=== PATIENT | female | born 1970 | race Caucasian/White ===

== ENCOUNTER 2018-09-05 22:31 | Emergency (ER) | payer OTHER ==
--- NOTE | 2018-09-05 23:32 | ED Physician Chart ---
ED Chief Complaint/HPI - Patient Information Date Seen:: 09/05/18 Time Seen:: 23:32 Chief Complaint:: Dizziness History of Present Illness:: 48 yo female had headache, dizziness, right jaw tightness, abdominal pain, nausea for 30 minutes. Pt had this before when she felt anxious. Allergies:: Allergies Allergy/AdvReac Type Severity Reaction Status Date / Time No Known Allergies Allergy Verified 09/05/18 22:51 Vitals:: Vital Signs - 8 hr 09/05/18 22:40 Temp 98.1 F HR 63 RR 18 BP 129/72 O2 Sat % 99 ED Review of Systems - Review of Systems General/Constitutional: No fever, Chills, Weakness Skin: No rash Head: Headache Eyes: No pain ENT: No earache Neck: Neck pain Cardio Vascular: No chest pain Pulmonary: SOB GI: Nausea, No vomiting Musculoskeletal: No bone or joint pain Neurological: No focal symptoms ED Past Medical History - Past Medical History Past Medical History: No significant medical hx Social History: Non Smoker, No Alcohol, No Drug Use Surgical History: None Family Medical History - Family Member Mother History Unknown: Yes ED Physical Exam - Physical Examination General/Constitutional: Awake, Alert Head: Atraumatic Eyes: PERRL, EOMI Skin: No skin lesions ENMT: Nasal exam nl Neck: No nuchal rigidity Respiratory: Nl effort/Exclusion, Clear to Auscultation Cardio Vascular: RRR, No murmur, gallop, rubs, NL S1 S2 GI: No tenderness/rebounding/guarding Extremities: normal strength in all extremities Neuro/Psych: No focal deficits ED Labs/Radiology/EKG Results - Lab Results Results: Laboratory Last Values WBC 8.9 Th/cmm (4.8-10.8) 09/05/18 23:55 RBC 4.53 Mil/cmm (3.80-5.10) 09/05/18 23:55 Hgb 13.0 gm/dL (12-16) 09/05/18 23:55 Hct 38.5 % (41.0-60) L 09/05/18 23:55 MCV 85.0 fl (81-100) 09/05/18 23:55 MCH 28.6 pg (27.0-31.0) 09/05/18 23:55 MCHC Differential 33.7 pg (28.0-36.0) 09/05/18 23:55 RDW 12.0 % (11.5-20.0) 09/05/18 23:55 Plt Count 292 Th/cmm (150-400) 09/05/18 23:55 MPV 8.5 fl 09/05/18 23:55 Neutrophils % 57.8 % (40.0-80.0) 09/05/18 23:55 Lymphocytes % 38.5 % (20.0-50.0) 09/05/18 23:55 Monocytes % 1.0 % (2.0-10.0) L 09/05/18 23:55 Eosinophils % 1.2 % (0.0-5.0) 09/05/18 23:55 Basophils % 1.5 % (0.0-2.0) 09/05/18 23:55 Sodium 139 mEq/L (136-145) 09/05/18 23:55 Potassium 3.3 mEq/L (3.5-5.1) L 09/05/18 23:55 Chloride 103 mEq/L (98-107) 09/05/18 23:55 Carbon Dioxide 27.5 mEq/L (21.0-31.0) 09/05/18 23:55 Anion Gap 11.8 (7.0-16.0) 09/05/18 23:55 BUN 8 mg/dL (7-25) 09/05/18 23:55 Creatinine 0.8 mg/dL (0.6-1.2) 09/05/18 23:55 Est GFR ( Amer) > 60.0 ml/min (>90) 09/05/18 23:55 Est GFR (Non-Af Amer) > 60.0 ml/min 09/05/18 23:55 BUN/Creatinine Ratio 10.0 09/05/18 23:55 Glucose 141 mg/dL (70-105) H 09/05/18 23:55 Calcium 9.4 mg/dL (8.6-10.3) 09/05/18 23:55 Total Bilirubin 0.4 mg/dL (0.3-1.0) 09/05/18 23:55 AST 16 U/L (13-39) 09/05/18 23:55 ALT 22 U/L (7-52) 09/05/18 23:55 Alkaline Phosphatase 86 U/L (34-104) 09/05/18 23:55 Troponin I < 0.01 ng/mL (0.01-0.05) L 09/05/18 23:55 B-Natriuretic Peptide < 5.0 pg/mL (5.0-100.0) L 09/05/18 23:55 Total Protein 6.7 gm/dL (6.0-8.3) 09/05/18 23:55 Albumin 4.2 gm/dL (3.7-5.3) 09/05/18 23:55 Globulin 2.5 gm/dL 09/05/18 23:55 Albumin/Globulin Ratio 1.7 (1.0-1.8) 09/05/18 23:55 Lipase 34 U/L (11-82) 09/05/18 23:55 Urine Source MIDSTREAM 09/06/18 00:40 Urine Color YELLOW 09/06/18 00:40 Urine Clarity CLEAR (CLEAR) 09/06/18 00:40 Urine pH 7.0 (4.6 - 8.0) 09/06/18 00:40 Ur Specific [place] <= 1.005 (1.005-1.030) 09/06/18 00:40 Urine Protein NEGATIVE mg/dL (NEGATIVE) 09/06/18 00:40 Urine Glucose (UA) NEGATIVE mg/dL (NEGATIVE) 09/06/18 00:40 Urine Ketones NEGATIVE mg/dL (NEGATIVE) 09/06/18 00:40 Urine Blood NEGATIVE (NEGATIVE) 09/06/18 00:40 Urine Nitrate NEGATIVE (NEGATIVE) 09/06/18 00:40 Urine Bilirubin NEGATIVE (NEGATIVE) 09/06/18 00:40 Urine Urobilinogen 0.2 E.U./dL (0.2 - 1.0) 09/06/18 00:40 Ur Leukocyte Esterase NEGATIVE (NEGATIVE) 09/06/18 00:40 Urine Test NEGATIVE 09/06/18 00:40 - EKG Interpretations Comments:: Normal EKG, sinus rhythm without ST, T waves changes. ED Assessment - Assessment General Assessment: Anxiety Hypokalemia Assessment/Comments:: CBC, CMP, troponin, CPK, BNP EKG, CXR KCL 40 mEq PO Reassurance ED Septic Shock - . Is Septic Shock (SBP<90, OR Lactate>4 mmol\L) present?: No - <6hrs of presentation: Vital Signs: Vital Signs - 8 hr 09/05/18 22:40 Temp 98.1 F HR 63 RR 18 BP 129/72 O2 Sat % 99 ED Reassessment (Disposition) - Reassessment Reassessment Condition:: Improved - Patient Disposition Discharge/Transfer:: Home
[2018-09-06 00:03] LABS: % BASOPHILS 1.5 % (0.0-2.0); % EOSINOPHILS 1.2 % (0.0-5.0); % LYMPHOCYTES 38.5 % (20.0-50.0); % NEUTROPHILS 57.8 % (40.0-80.0); BASOPHILE ABSOLUTE 0.1 Th/cumm (0-0.2); EOSINOPHILE ABSOLUTE 0.1 Th/cmm (0.1-0.4); HEMATOCRIT 38.5 % (41.0-60); LYMPHOCYTE ABSOLUTE 3.4 Th/cmm (1.5-3.0); MEAN CORPUSCULAR HEMOGLOBIN 28.6 pg (27.0-31.0); MEAN CORPUSCULAR HGB CONC 33.7 pg (28.0-36.0); MEAN PLATELET VOLUME 8.5 fl; MONOCYTE ABSOLUTE 0.1 Th/cmm (0.3-1.0); NEUTROPHILE ABSOLUTE 5.2 Th/cmm (1.8-8.0); PLATELET COUNT 292 Th/cmm (150-400); RED BLOOD COUNT 4.53 Mil/cmm (3.80-5.10); WHITE BLOOD COUNT 8.9 Th/cmm (4.8-10.8)
[2018-09-06 00:18] LABS: ALB/GLOB RATIO 1.7 (1.0-1.8); ALBUMIN 4.2 gm/dL (3.7-5.3); ALKALINE PHOSPHATASE 86 U/L (34-104); ANION GAP 11.8 (7.0-16.0); BILIRUBIN,TOTAL 0.4 mg/dL (0.3-1.0); BUN - UREA NITROGEN 8 mg/dL (7-25); CALCIUM SERUM 9.4 mg/dL (8.6-10.3); CARBON DIOXIDE 27.5 mEq/L (21.0-31.0); CHLORIDE 103 mEq/L (98-107); CREATININE - SERUM 0.8 mg/dL (0.6-1.2); GFR AFRICAN-AMERICAN > 60.0 ml/min (>90); GFR NON AFRICAN-AMERICAN > 60.0 ml/min; GLUCOSE 141 mg/dL (70-105); LIPASE 34 U/L (11-82); POTASSIUM SERUM 3.3 mEq/L (3.5-5.1); SGOT 16 U/L (13-39); SGPT/ALT 22 U/L (7-52); SODIUM SERUM 139 mEq/L (136-145); TOTAL PROTEIN,SERUM 6.7 gm/dL (6.0-8.3)
[2018-09-06 00:43] LABS: URINE SOURCE MIDSTREAM
[2018-09-06 00:46] LABS: URINE BILIRUBIN NEGATIVE (NEGATIVE); URINE BLOOD NEGATIVE (NEGATIVE); URINE GLUCOSE (UA) NEGATIVE (NEGATIVE); URINE KETONE NEGATIVE (NEGATIVE); URINE LEUKOCYTE ESTERASE NEGATIVE (NEGATIVE); URINE NITRATE NEGATIVE (NEGATIVE); URINE PROTEIN NEGATIVE (NEGATIVE); URINE UROBILINOGEN 0.2 E.U./dL (0.2 - 1.0)
[2018-09-06 00:50] LABS: URINE CLARITY CLEAR (CLEAR); URINE COLOR YELLOW; URINE MICROSCOPIC INDICATED? NO
[2018-09-06] MEDS ORDERED: Potassium Chloride 20 mEq ER Tab PO ONE ×2 (00:53→00:58)
== END 2018-09-06 01:19 | disposition home or self-care (01) ==
LOC: ER 22:31
DX: F41.9 Anxiety disorder, unspecified (principal); E87.6 Hypokalemia
CPT/HCPCS: 36415-UA; 80053-TC; 81003-TC; 81025-TC; 83690-TC; 83880-TC; 84484-TC; 85025-TC; 93005